=== PATIENT | female | born 1990 | race Caucasian/White ===

== ENCOUNTER 2024-03-17 20:15 | Emergency (ER) | payer MEDICAID ==
[~2024-03-17] VITALS: Ht 165.1 cm; Wt 70.3 kg
[2024-03-17 20:52] VITALS: BP_SYST 118; PULSE 99; RESP 20; TEMP 97.6; O2SAT 97
[2024-03-17 21:20] LABS: BILIRUBIN,URINE NEGATIVE (NEGATIVE); BLOOD, URINE NEGATIVE (NEGATIVE); CLARITY/URINE CLEAR (CLEAR); COLOR,URINE YELLOW (YELLOW); GLUCOSE,URINE NEGATIVE (NEGATIVE); KETONES,URINE NEGATIVE (NEGATIVE); LEUKOCYTE ESTERASE ,URINE 2+ (NEGATIVE); NITRITE, URINE NEGATIVE (NEGATIVE); PROTEIN URINE NEGATIVE (NEGATIVE); UROBILINOGEN,URINE 0.2 (0.2-1.0)
[2024-03-17 21:59] LABS: BACTERIA,URINE RARE /HPF (None Seen); RBC,URINE 0-3 /HPF (0-3)
[2024-03-18] MEDS ORDERED: NITR-85 PO (00:22)
[2024-03-18] MEDS: cefTRIAXone 500 MG in LIDOCAINE 1%, 20 ML MDV 1 ML IM ONE (00:36)
[2024-03-18] MEDS: AZITHROMYCIN 250 MG TABLET PO ONE (00:36)
[2024-03-18 00:57] VITALS: BP_SYST 127; PULSE 91; RESP 18; TEMP 97.8; O2SAT 96
== END 2024-03-18 00:55 | disposition home or self-care (01) ==
LOC: SED 20:15
DX: O34.63 Maternal care for abnormality of vagina, third trimester (principal); O23.33 Infections of other parts of urinary tract in pregnancy, third trimester; Z20.2 Contact with and (suspected) exposure to infections with a predominantly sexual mode of transmission; N89.8 Other specified noninflammatory disorders of vagina; N39.0 Urinary tract infection, site not specified; Z3A.32 32 weeks gestation of pregnancy; Z88.8 Allergy status to other drugs, medicaments and biological substances; Z79.899 Other long term (current) drug therapy
CPT/HCPCS: 99283; 81001; 87086; 87210; 36415; 87491; 96372; J0696; Q0144; 81000; 81015; J2001